=== PATIENT | female | born 1945 | race Caucasian/White ===

== ENCOUNTER → 2016-11-06 | Outpatient (CLI) | payer MEDICARE, OTHER, MEDICAID ==
--- NOTE | 2016-11-06 10:48 | DI ---
Indication: ITS.REASON: E04.1 Nontoxic single thyroid nodule PROCEDURE: US THYROID: Encounter: Initial Comparison: None Technique: Grayscale and color Doppler sonographic imaging of the thyroid gland was performed. Findings: Right thyroid lobe appears homogeneous without focal nodule or mass. Thyroid isthmus is normal measuring 0.2 cm in size. Left thyroid lobe shows an oval isoechoic nodule measuring 0.9 x 0.6 x 1 cm in size in the superior aspect. This has internal vascularity flow and is wider than tall. Additionally there is a similar appearing 1 cm isoechoic nodule more inferiorly with internal vascularity. Right lobe measures 3.4 x 1.3 x 1.5 cm in size. Left lobe measures 3.1 x 1.9 x 1 cm in size. Symmetric flow to both lobes. Impression: Two separate 1 cm nodules in the left thyroid lobe which appear benign by ultrasound and are below the recommended size threshold for fine-needle aspiration or biopsy. Follow-up ultrasound in one year could be performed to document continued stability. .
== END ==
LOC: IMA 10:00
PROVIDERS: ATTEND Family Medicine
DX: E04.2 Nontoxic multinodular goiter (principal)